=== PATIENT | female | born 1940 | race Caucasian/White ===

== ENCOUNTER 2022-02-20 11:15 | Outpatient (RCR) | payer MEDICARE, SELFPAY | END 2022-04-13 16:21 | disposition home or self-care (01) | PROVIDERS: PCP Orthopaedic Surgery; Visit Provider Orthopaedic Surgery | DX: Z96.641 Presence of right artificial hip joint (principal); Z51.89 Encounter for other specified aftercare | CPT/HCPCS: 97110; 97116; 97140; 97161 ==

== ENCOUNTER 2022-05-12 13:38 | Emergency (ER) | payer MEDICARE, SELFPAY ==
[2022-05-12] VITALS (22 sets, daily range): BP systolic 122–155; BP diastolic 53–112; PULSE 52–76; TEMP 36.4; O2SAT 84–99; BMI 43.3
--- NOTE | 2022-05-12 14:16 | CRLHL7_ITS ---
For Patients: As a result of the Century Cures Act, medical imaging exams and procedure reports are released immediately into your electronic medical record. You may view this report before your referring provider. If you have questions, please contact your health care provider. Indication: Chest pain Technique: Chest 2 views Comparison: None Findings/Impression: Cardiovascular and mediastinum: Heart size and vasculature are normal in caliber and appearance. Mediastinum is within normal limits. Lungs and pleural spaces: No pleural effusion or pneumothorax. Discoid atelectasis left lung base. Bones and soft tissues: No significant findings. Dictated by Bernardo Deluca MD @ 05/12/2022 3:41:47 PM (Electronically Signed)
--- NOTE | 2022-05-12 14:41 | ED_ITS ---
HPI - Chest Pain General Date Seen: 05/12/22 Chief Complaint: Chest Pain Stated Complaint: Chest pain, weakness in arms Time Seen by Provider: 05/12/22 14:05 Source: patient and family Mode of arrival: ambulatory Limitations: no limitations History of Present Illness HPI narrative: Patient is a 81-year-old female proximally 1.5 hours ago noted that she had is bubbly pressure feeling in her chest, this lasted for approximately 1-2 minutes, she was sitting at her dinner table when this occurred, not exercising herself. She said it did radiate to her arms bilaterally, lasted approximately 20 seconds and then resolved. Called her who told her where her blood pressure cuff was, he then came home from where ever he was and brought her to the emergency room. She has a history of atrial fibrillation but no personal history of coronary disease. Remembers approximately 1 year ago she had a similar episode when she was at the [facility] and she was sent to [facility], was seen in the emergency room and then discharge, does remember if she had a stress test or not. No nausea vomiting no diaphoresis no radiation of discomfort other than noted described, she feels back to normal at the present time. She tells me she does not really exert herself due to orthopedic issues with her lower extremities but has never had chest pain shortness of breath when she is moving around. MD complaint: chest pain and chest heaviness Onset (ago): hour(s) Timing of current episode: episodic Prior episodes: Yes Onset: during rest Pain location: substernal Pain radiation: right arm and left arm Severity: moderate Quality: tightness and heaviness Exacerbating factors: nothing Treatment prior to arrival: none Risk Factors Thoracic aortic dissection risk factors: none Related Data On Oral Contraceptives: No Home Medications Medication Instructions Recorded Confirmed hydrochlorothiazide 25 mg tablet mg 05/12/22 losartan 100 mg tablet mg 05/12/22 metoprolol succinate 50 mg mg PO 05/12/22 tablet,extended release 24 hr omeprazole 20 mg capsule,delayed mg 05/12/22 release simvastatin 20 mg tablet mg 05/12/22 warfarin 5 mg tablet mg 05/12/22 Allergies Allergy/AdvReac Type Severity Reaction Status Date / Time No Known Drug Allergies Allergy Verified 05/12/22 13:51 Review of Systems Status of ROS Reports: 10 or more systems reviewed and unremarkable except as noted in History and below PFSH [facility] Social History Smoking Status: Former smoker Do you use any of these nicotine containing products: None How often do you have a drink containing alcohol: 2-4 times a month How many standard drinks containing alcohol do you have on a typical day: 1 or 2 AUDIT-C Alcohol total score: 2 Non-prescribed substance use: denies use Exam Narrative Exam Narrative: Patient is seen in room 3, her BMI is elevated, Patient is speaking normally, no problem with slurring words, oriented x3. Head eyes ears nose and throat exam show equal pupils, no scleral icterus, extraocular muscles are normal, no facial droop, speech is normal, trachea normal and midline. Thyroid normal midline palpable not enlarged. Chest shows symmetrical rise bilaterally, normal auscultation with no wheezes, no increased work of breathing, no overt bruising or lesions seen, no tenderness is noted on auscultation. Heart sounds normal with no S3-S4 no murmurs clicks or gallops. Abdomen shows no obvious masses or hepatosplenomegaly, no organomegaly, bowel sounds are normal in all quadrants. No tenderness is noted also in all quadrants. Upper and lower extremities show normal power, normal range of motion, pulses are normal, sensations normal, fine motor movements are normal, pelvis is stable to rocking. Cervical spine shows normal range of motion, and palpably not tender. Thoracic spine shows normal range of motion, and palpably not tender, lumbar spine shows no tenderness to palpation percussion and is otherwise normal range of motion. Skin shows no rashes, petechiae or eccymosis. Const Vital Signs, click to edit/add: Vital Signs - 24 hr 05/12/22 13:51 05/12/22 14:57 05/12/22 15:00 Temperature 97.6 F Pulse Rate 55 L 52 L Pulse Rate [Pulse Oximeter] 62 Blood Pressure Blood Pressure [Right Upper Arm] 155/78 H Pulse Oximetry 97 98 99 Oxygen Delivery Method Room Air 05/12/22 15:02 05/12/22 15:03 05/12/22 15:30 Temperature Pulse Rate 55 L 55 L 52 L Pulse Rate [Pulse Oximeter] Blood Pressure 122/61 Blood Pressure [Right Upper Arm] Pulse Oximetry 98 99 99 Oxygen Delivery Method 05/12/22 15:32 05/12/22 16:00 05/12/22 16:02 Temperature Pulse Rate 55 L 55 L 56 L Pulse Rate [Pulse Oximeter] Blood Pressure 124/66 127/112 H Blood Pressure [Right Upper Arm] Pulse Oximetry 96 99 99 Oxygen Delivery Method 05/12/22 16:30 05/12/22 16:32 05/12/22 16:33 Temperature Pulse Rate 55 L 52 L 57 L Pulse Rate [Pulse Oximeter] Blood Pressure 129/68 Blood Pressure [Right Upper Arm] Pulse Oximetry 99 97 96 Oxygen Delivery Method 05/12/22 17:00 05/12/22 17:02 05/12/22 17:03 Temperature Pulse Rate 53 L 55 L 57 L Pulse Rate [Pulse Oximeter] Blood Pressure 129/74 Blood Pressure [Right Upper Arm] Pulse Oximetry 96 96 98 Oxygen Delivery Method 05/12/22 18:07 05/12/22 18:11 05/12/22 18:30 Temperature Pulse Rate 76 65 62 Pulse Rate [Pulse Oximeter] Blood Pressure 146/71 H Blood Pressure [Right Upper Arm] Pulse Oximetry 84 L 99 98 Oxygen Delivery Method 05/12/22 18:32 Temperature Pulse Rate 61 Pulse Rate [Pulse Oximeter] Blood Pressure 123/61 Blood Pressure [Right Upper Arm] Pulse Oximetry 96 Oxygen Delivery Method Documenting provider has reviewed patient's vital signs: yes Course Course Hospital Course: She was accepted to transfer by Dr. Bermudez at [facility], with a diagnosis of NSTEMI. She is currently pain-free, Vital Signs Vital signs: Initial Vital Signs Temperature 97.6 F 05/12/22 13:51 Temperature Source Temporal Artery Scan 05/12/22 13:51 Pulse Rate 62 05/12/22 13:51 Blood Pressure 155/78 H 05/12/22 13:51 Blood Pressure Mean 103 05/12/22 13:51 Blood Pressure Position Sitting 05/12/22 13:51 Pulse Oximetry 97 05/12/22 13:51 Oxygen Delivery Method 05/12/22 13:51 Vital Signs Temperature 97.6 F 05/12/22 13:51 Pulse Rate 62 05/12/22 13:51 Blood Pressure 155/78 H 05/12/22 13:51 Pulse Oximetry 97 05/12/22 13:51 Oxygen Delivery Method 05/12/22 13:51 Temperature 97.6 F 05/12/22 13:51 Pulse Rate 61 05/12/22 18:32 Blood Pressure 123/61 05/12/22 18:32 Pulse Oximetry 96 05/12/22 18:32 Oxygen Delivery Method 05/12/22 13:51 MDM - Chest Pain MDM Narrative Medical decision making narrative: During the evaluation of this patient I considered multiple differential di agnosis is. The life-threatening differential diagnosis include coronary disease/[place], pulmonary embolism, pneumothorax, pneumonia, and aortic dissection. Other differential diagnosis included but were not limited to pericarditis, myocarditis, chest wall pain, GERD, esophageal rupture, rib fracture contusion, pleurisy, as well as other etiologies. Medical Records Data Attestation: I reviewed the patient's medical records. Lab Data Attestation: I reviewed the patient's lab results. Labs: Lab Results 05/12/22 05/12/22 05/12/22 Range/Units 10:36 14:35 14:35 WBC 8.05 (4.50-11.00) K/uL RBC 4.56 (4.00-5.20) m/uL Hgb 13.8 (12.0-16.0) gm/dL Hct 41.4 (33.0-51.0) % MCV 91 (80-100) fL MCH 30 (26-34) pg MCHC 33 (32-36) gm/dL RDW Coeff of Donna 13.2 (11.5-15.5) % Plt Count 179 (140-440) K/uL Neut % (Auto) 69.0 (42.0-72.0) % Lymph % (Auto) 22.7 (20-44) % [place] % (Auto) 6.5 (0.0-11.0) % Eos % (Auto) 0.6 (0.0-7.0) % Baso % (Auto) 0.1 (0.0-3.0) % Neut # (Auto) 5.55 (1.7-7.0) K/uL Lymph # (Auto) 1.83 (0.90-2.90) K/uL [place] # (Auto) 0.50 (0.00-0.90) K/UL Eos # (Auto) 0.05 (0.00-0.50) K/uL Baso # (Auto) 0.01 (0.00-0.30) K/uL INR (0.91-1.10) APTT 37 H (23-33) Seconds D-Dimer Quant (PE/DVT) 0.68 H (0.00-0.50) ug/ml Sodium 138 (135-149) mmol/L Potassium 3.3 L (3.6-5.1) mmol/L Chloride 104 (96-114) mmol/L Carbon Dioxide 30 (20-32) mmol/L BUN 20 (7-30) mg/dL Creatinine 0.8 (0.5-1.5) mg/dL Estimated Creat Clear 41.05 Estimated GFR 75 ml/min Glucose 96 (60-115) mg/dL Calcium 9.2 (8.4-10.6) mg/dL Total Bilirubin (0.1-1.5) mg/dL Direct Bilirubin (0.0-0.5) mg/dL AST (12-35) U/L ALT (4-35) U/L Alkaline Phosphatase (40-150) U/L NT-Pro-B Natriuret Pep pg/mL Total Protein (6.0-8.3) g/dL Albumin (3.3-5.0) g/dL Lipase (23-300) U/L SARS-CoV-2 (PCR) (Negative) Influenza Type A (PCR) (Negative) Influenza Type B (PCR) (Negative) RSV (PCR) (Negative) POC Troponin I (0.01-0.04) ng/ml 05/12/22 05/12/22 05/12/22 Range/Units 14:35 14:35 14:35 WBC (4.50-11.00) K/uL RBC (4.00-5.20) m/uL Hgb (12.0-16.0) gm/dL Hct (33.0-51.0) % MCV (80-100) fL MCH (26-34) pg MCHC (32-36) gm/dL RDW Coeff of Donna (11.5-15.5) % Plt Count (140-440) K/uL Neut % (Auto) (42.0-72.0) % Lymph % (Auto) (20-44) % [place] % (Auto) (0.0-11.0) % Eos % (Auto) (0.0-7.0) % Baso % (Auto) (0.0-3.0) % Neut # (Auto) (1.7-7.0) K/uL Lymph # (Auto) (0.90-2.90) K/uL [place] # (Auto) (0.00-0.90) K/UL Eos # (Auto) (0.00-0.50) K/uL Baso # (Auto) (0.00-0.30) K/uL INR (0.91-1.10) APTT (23-33) Seconds D-Dimer Quant (PE/DVT) (0.00-0.50) ug/ml Sodium (135-149) mmol/L Potassium (3.6-5.1) mmol/L Chloride (96-114) mmol/L Carbon Dioxide (20-32) mmol/L BUN (7-30) mg/dL Creatinine (0.5-1.5) mg/dL Estimated Creat Clear Estimated GFR ml/min Glucose (60-115) mg/dL Calcium (8.4-10.6) mg/dL Total Bilirubin 0.9 (0.1-1.5) mg/dL Direct Bilirubin 0.1 (0.0-0.5) mg/dL AST 27 (12-35) U/L ALT 20 (4-35) U/L Alkaline Phosphatase 88 (40-150) U/L NT-Pro-B Natriuret Pep 405 pg/mL Total Protein 6.9 (6.0-8.3) g/dL Albumin 4.2 (3.3-5.0) g/dL Lipase 53 (23-300) U/L SARS-CoV-2 (PCR) Negative SARS-CoV-2 (Negative) Influenza Type A (PCR) Negative PCR FLU A (Negative) Influenza Type B (PCR) Negative PCR FLU B (Negative) RSV (PCR) Negative PCR RSV (Negative) POC Troponin I 0.05 H (0.01-0.04) ng/ml 05/12/22 05/12/22 Range/Units 14:35 17:35 WBC (4.50-11.00) K/uL RBC (4.00-5.20) m/uL Hgb (12.0-16.0) gm/dL Hct (33.0-51.0) % MCV (80-100) fL MCH (26-34) pg MCHC (32-36) gm/dL RDW Coeff of Donna (11.5-15.5) % Plt Count (140-440) K/uL Neut % (Auto) (42.0-72.0) % Lymph % (Auto) (20-44) % [place] % (Auto) (0.0-11.0) % Eos % (Auto) (0.0-7.0) % Baso % (Auto) (0.0-3.0) % Neut # (Auto) (1.7-7.0) K/uL Lymph # (Auto) (0.90-2.90) K/uL [place] # (Auto) (0.00-0.90) K/UL Eos # (Auto) (0.00-0.50) K/uL Baso # (Auto) (0.00-0.30) K/uL INR 1.86 H (0.91-1.10) APTT (23-33) Seconds D-Dimer Quant (PE/DVT) (0.00-0.50) ug/ml Sodium (135-149) mmol/L Potassium (3.6-5.1) mmol/L Chloride (96-114) mmol/L Carbon Dioxide (20-32) mmol/L BUN (7-30) mg/dL Creatinine (0.5-1.5) mg/dL Estimated Creat Clear Estimated GFR ml/min Glucose (60-115) mg/dL Calcium (8.4-10.6) mg/dL Total Bilirubin (0.1-1.5) mg/dL Direct Bilirubin (0.0-0.5) mg/dL AST (12-35) U/L ALT (4-35) U/L Alkaline Phosphatase (40-150) U/L NT-Pro-B Natriuret Pep pg/mL Total Protein (6.0-8.3) g/dL Albumin (3.3-5.0) g/dL Lipase (23-300) U/L SARS-CoV-2 (PCR) (Negative) Influenza Type A (PCR) (Negative) Influenza Type B (PCR) (Negative) RSV (PCR) (Negative) POC Troponin I 0.49 H (0.01-0.04) ng/ml Imaging Data Chest x-ray: Attestation: I have reviewed the pertinent imaging results. My impression: No acute changes Radiologist's impression: Patient: ANGEL LUIS ARIZAPancho Facility:?[facility] Patient ID:?[id number] Site Patient ID:?[id number]. Site :?[id number] Study:?XRay Chest PA & LAT-05/12/2022 2:34:38 PM Ordering Physician:Ramez Briseno Final Report: Indication: Chest pain Technique: Chest 2 views Comparison: None Findings/Impression: Cardiovascular and mediastinum: Heart size and vasculature are normal in caliber and appearance. Mediastinum is within normal limits. Lungs and pleural spaces: No pleural effusion or pneumothorax. Discoid atelectasis left lung base. Bones and soft tissues: No significant findings. Dictated by Bernardo Deluca MD @ 05/12/2022 3:41:47 PM (Electronic Signature) ECG Data Attestation: I personally reviewed and interpreted this ECG as follows: ECG interpretation date: 05/12/22 Interpretation: EKG shows sinus rhythm with a ventricular rate of 63, occasional PVCs, no acute ST wave changes, 2nd EKG done 2 hours after 1st EKG shows no acute changes, Discharge Plan Discharge Clinical Impression: Acute non-ST elevation myocardial infarction (NSTEMI) Patient Disposition: [facility] Condition: Stable Prescriptions: No Action metoprolol succinate 50 mg tablet extended release 24 hr PO Label Comments: TAKE 1 TABLET BY MOUTH ONCE DAILY simvastatin 20 mg tablet Label Comments: TAKE 1 TABLET BY MOUTH ONCE DAILY IN THE EVENING warfarin 5 mg tablet omeprazole 20 mg capsule,delayed release(DR/EC) Label Comments: TAKE 1 CAPSULE BY MOUTH ONCE DAILY BEFORE A MEAL hydrochlorothiazide 25 mg tablet Label Comments: TAKE 1 TABLET BY MOUTH ONCE DAILY losartan 100 mg tablet Label Comments: TAKE 1 TABLET BY MOUTH ONCE DAILY Stand Alone Forms: My[employer] Info Instructions
[2022-05-12 14:55] LABS: Basophils Absolute Auto 0.01 K/uL (0.00-0.30); Basophils Percent Auto 0.1 % (0.0-3.0); Eosinophils Absolute Auto 0.05 K/uL (0.00-0.50); Eosinophils Percent Auto 0.6 % (0.0-7.0); Hematocrit 41.4 % (33.0-51.0); Hemoglobin* 13.8 gm/dL (12.0-16.0); Immature Granulocytes Abs Auto 0.09 K/uL (0.00-0.30); Immature Granulocytes Pct Auto 1.1 %; Lymphocytes Absolute Auto 1.83 K/uL (0.90-2.90); Lymphocytes Percent Auto 22.7 % (20-44); Mean Corpuscular HGB Conc 33 gm/dL (32-36); Mean Corpuscular Hemoglobin 30 pg (26-34); Mean Corpuscular Volume 91 fL (80-100); Monocytes Percent Auto 6.5 % (0.0-11.0); Neutrophils Absolute Auto 5.55 K/uL (1.7-7.0); Platelet Count* 179 K/uL (140-440); RDW Coefficient of Variation % 13.2 % (11.5-15.5); Red Blood Count 4.56 m/uL (4.00-5.20); White Blood Count* 8.05 K/uL (4.50-11.00)
[2022-05-12 14:59] LABS: Slide Review Reflex No
[2022-05-12 15:05] LABS: Troponin, Point-of-Care* 0.05 ng/ml (0.01-0.04)
[2022-05-12 15:11] LABS: Albumin* 4.2 g/dL (3.3-5.0)
[2022-05-12 15:12] LABS: Chloride* 104 mmol/L (96-114); Partial Thromboplastin Time* 37 Seconds (23-33); Potassium* 3.3 mmol/L (3.6-5.1); Sodium* 138 mmol/L (135-149)
[2022-05-12 15:14] LABS: Alkaline Phosphatase* 88 U/L (40-150); Aspartate Amino Transferase* 27 U/L (12-35); Bilirubin Direct* 0.1 mg/dL (0.0-0.5); Bilirubin Total* 0.9 mg/dL (0.1-1.5); D Dimer Quantitative* 0.68 ug/ml (0.00-0.50); Lipase* 53 U/L (23-300); Total Protein* 6.9 g/dL (6.0-8.3)
[2022-05-12 15:15] LABS: Alanine Aminotransferase* 20 U/L (4-35); Carbon Dioxide* 30 mmol/L (20-32); Creatinine* 0.8 mg/dL (0.5-1.5); Est. Creatinine Clearance* 41.05; Estimated Glomerular Filt Rate 75 ml/min
[2022-05-12 15:16] LABS: Blood Urea Nitrogen* 20 mg/dL (7-30); Calcium* 9.2 mg/dL (8.4-10.6); Glucose* 96 mg/dL (60-115)
[2022-05-12 15:32] LABS: NT Pro B Type NatriureticPept* 405 pg/mL
[2022-05-12 16:14] LABS: PCR FLU A Negative PCR FLU A (Negative); PCR FLU B Negative PCR FLU B (Negative); PCR RSV Negative PCR RSV (Negative)
[2022-05-12 16:23] LABS: SARS PCR* Negative SARS-CoV-2 (Negative)
[2022-05-12 17:47] LABS: Troponin, Point-of-Care* 0.49 ng/ml (0.01-0.04)
--- NOTE | 2022-05-12 17:47 | ED.NURSE ---
Trop result relayed to Dr clinton
[2022-05-12] MEDS: ASPIRIN 81 MG TAB.CHEW 324 MG PO (18:03)
[2022-05-12 18:08] LABS: INR 1.86 (0.91-1.10); Prothrombin Time 22.4 Seconds
--- NOTE | 2022-05-12 19:13 | ED.NURSE ---
Report to Evie SANABRIA at [facility]. EMS called for transport.
--- NOTE | 2022-05-12 19:31 | ED.NURSE ---
Patient transfer to [facility] via [facility]. Patient sent with ED transfer packet, face sheet, PCS form, transfer consent, copy of EKG. Patient stable at time of transport.
== END 2022-05-12 19:33 | disposition home or self-care (01) ==
PROVIDERS: Emergency Provider Family Medicine; PCP Family Medicine
DX: I21.4 Non-ST elevation (NSTEMI) myocardial infarction (principal); Z13.0 Encounter for screening for diseases of the blood and blood-forming organs and certain disorders involving the immune mechanism
CPT/HCPCS: 36415; 71046; 80048; 80076; 83690; 83735; 83880; 84484; 85025; 85379; 85610; 85730; 87502; 87634; 87635; 93005; 99285; A9270

== ENCOUNTER 2022-05-12 19:18 | Outpatient (CLI) | payer MEDICARE, SELFPAY | END 2022-05-12 19:19 | disposition home or self-care (01) | LOC: AMB 05-15 06:21 | PROVIDERS: PCP Family Medicine; Visit Provider Family Medicine | DX: R07.89 Other chest pain (principal) | CPT/HCPCS: A0425; A0427 ==

== ENCOUNTER 2024-09-01 11:08 | Emergency (ER) | payer MEDICARE, SELFPAY ==
[2024-09-01] VITALS (8 sets, daily range): BP systolic 110–132; BP diastolic 65–81; PULSE 69–77; RESP 16–40; TEMP 36.3; O2SAT 97–98; BMI 42.6
--- OUTSIDE RECORDS SUMMARY | 2024-09-01 11:11 | XMS_ITS | Clinical Summary ---
Author Organization [facility] Address [address] [place] [address] Care Team Providers Care Gender Studies Professor Name Role Phone JaelmirlandegmMitali Primary Care Provider [phone] Annamarie Mansfield MD Unavailable [phone] Allergies Active Allergy Reactions Criticality Noted Date Comments Flbmdxdj-Ykwzgvjrqtu-Urrxtvcfr Rash 01/21 Amlodipine Rash Low 04/26/2016 Medications cetirizine (ZYRTEC) 10 mg tabletIndications :Allergic rhinitis, cause unspecified Take 1 tablet by mouth once daily. 90 tablet 3 011 Active cholecalciferol (VITAMIN D-3) 2,000 unit capsuleIndication s:Vitamin D deficiency Take 1 capsule by mouth once daily. 90 capsule 3 013 Active Tylenol Extra Strength 500 mg tablet TAKE 2 TABLETS BY MOUTH EVERY 8 HOURS FOR 21 DAYS POST-OP THEN NEEDED 022 Active famotidine (Pepcid) 20 mg tablet Take 1 Tablet (20 mg) by mouth 2 times daily if needed. 0 023 Active fluticasone (50 mcg per actuation) nasal solution (FLONASE)Indicati ons:Chronic nasal congestion Inhale 1 [place] to both nostrils once daily. 16 g 6 024 Active Graduated Compression StockingsIndicati ons:Venous stasis For personal use. Length: thigh Strength: 20-30 mmHg Circumference in cm: For thigh: Ankle 27, Calf 49, Thigh 56, Thigh to Ankle length 51. 1 Packet 024 Active ondansetron (ZOFRAN ODT) 4 mg disintegrating tabletIndications :Benign paroxysmal positional vertigo due to bilateral vestibular disorder Place 1 Tablet (4 mg) on the tongue every 8 hours if needed for Nausea/Vomiting. 30 Tablet Active meclizine (ANTIVERT) 25 mg tabletIndications :Benign paroxysmal positional vertigo due to bilateral vestibular disorder Take 1 Tablet (25 mg) by mouth 3 times daily if needed for Vertigo. 30 Tablet 024 Active ipratropium (ATROVENT NASAL) 21 mcg (0.03 %) nasal sprayIndications: Non-seasonal allergic rhinitis, unspecified trigger Inhale 2 Sprays into affected nostril(s) 3 times daily if needed for Rhinitis. Abingdon dose in each nostril. 30 mL 11 Active triamcinolone (ARISTOCORT; KENALOG) 0.1 % creamIndications: Atopic dermatitis, unspecified type APPLY CREAM TOPICALLY TO AFFECTED AREA(S) TWICE DAILY UP TO FOR 2 WEEKS FOR LEG RASH 45 g 025 Active warfarin 5 mg tabletIndications :PAF (paroxysmal atrial fibrillation) (HC),Anticoagulat ion monitoring, INR range 2-3 TAKE 1 TABLET (5mg) BY MOUTH ONCE DAILY IN THE EVENING OR DIRECTED 91 Tablet 025 Active hydroCHLOROthiazi de 25 mg tabletIndications :Essential hypertension Take 1 Tablet (25 mg) by mouth once daily. 100 Tablet 3 025 Active losartan 100 mg tabletIndications :Essential hypertension Take 1 Tablet (100 mg) by mouth once daily. 100 Tablet 025 Active metoprolol succinate 50 mg sustained-release tabletIndications :Essential hypertension Take 1 Tablet (50 mg) by mouth once daily. 100 Tablet 3 025 Active potassium chloride 20 mEq extended-release tablet (part/cryst)Indic ations:Hypokalemi a Take 1 Tablet (20 mEq) by mouth once daily with a meal. 100 Tablet 3 025 Active rosuvastatin 20 mg tabletIndications :ASHD (arteriosclerotic heart disease) Take 1 Tablet (20 mg) by mouth at bedtime. 100 Tablet 3 025 Active metFORMIN 500 mg Extended-Release tabletIndications :Prediabetes Take 1 Tablet (500 mg) by mouth once daily with evening meal. For a week, then take 2 tablets daily with a meal. 180 Tablet 1 025 Active omeprazole 20 mg Delayed-Release capsuleIndication s:Gastroesophagea l reflux disease with esophagitis without hemorrhage TAKE 1 CAPSULE BY MOUTH ONCE DAILY BEFORE A MEAL 90 Capsule 2 025 Active albuterol HFA 90 mcg/actuation inhalerIndication s:Acute non-recurrent maxillary sinusitis Inhale 1-2 Puffs by mouth every 4 hours if needed for Shortness Of Breath or Wheezing for up to 5 days. 1 Each 025 2024 Active doxycycline monohydrate 100 mg capsuleIndication s:Acute non-recurrent maxillary sinusitis Take 1 Capsule (100 mg) by mouth two times daily for 10 days. 20 Capsule 025 2024 Active omeprazole (PRILOSEC) 20 mg Delayed-Release capsuleIndication s:Gastroesophagea l reflux disease with esophagitis without hemorrhage Take 1 Capsule (20 mg) by mouth once daily before a meal. 100 Capsule 3 024 2024 Discontinued Active Problems Problem Noted Date Diagnosed Date Prediabetes 06/26/2024 Gastroesophageal reflux dise ase with esophagitis without hemorrhage 01/30/2024 Morbid obesity, unspecified obesity type Prediabetes 02/06/2023 Hypokalemia 02/06/2023 NSTEMI (non-ST elevated myocardial infarction) 0 05/12/2022 Body mass index (BMI) 40.0-44.9, adult Anticoagulation monitoring, INR range 2-3 2020 PAF (paroxysmal atrial fibrillation) 02/03/2021 Prediabetes 10/26/2020 Bilateral pseudophakia 10/23/2019 Hyperopia of both eyes with astigmatism and pres byopia 11/12/2018 Skin cancer 06/20/2018 Overview (04/22/2020): 06/20/18 right cheek, nodular BCC: Mohs 07/15/18 [place] 05/10/18 left garcia, SCCIS, used Aldara Squamous cell carcinoma, leg, left 05/13/2018 Osteopenia of multiple sites 04/27/2017 Overview (11/01/2020): DEXA 04/19/17:T-scores: AP -0.2, LFN -1.3, RFN -0.9. FRAX 9.1%. DEXA 10/28/20: T-scores AP: 1.1, LFN -1.1, RFN -1.0. FRAX 14.8. Recommend basic bone health and repeat in 3-5 years. PMB (postmenopausal bleeding) 02/04/2016 ABM (anterior basement membrane) dystrophy 12/19 Atrophic vaginitis 10/11/2015 Microscopic hematuria 10/11/2015 Adenomatous colon polyp 11/19/2013 Overview (01/14/2020): Colonoscopy 11/2013 polyp repeat in 5 years Colonoscopy 12/2019 polyp, repeat in 5 years with propofol Protruded lumbar disc 06/07/2011 JOHN AHI-25 09/06/2009 09/27/2009 Vitamin D deficiency 07/18/2009 Other and unspecified hyperlipidemia 01/08/2006 Osteoarthrosis, unspecified whether generalized or localized, lower leg 01/08/2006 Pure hypercholesterolemia 09/30/2003 Unspecified essential hypertension 09/30/2003 Benign paroxysmal positional vertigo 09/30/2003 Obesity, unspecified 09/30/2003 DYSTROPHY, SENSORY RETINAL-FUNDUS FLAVIMACULATUS 09/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 Followed until 5 years out from surgery (03/2021). SINUSITIS - ACUTE 04/07/2005 04/19/2018 Encounters Date Type Department Care Team Description 08/28/2024 9:50 AM CDT Ancillary Procedure [facility] [address] [facility] [address] [place] [address] 08/28/2024 9:25 AM CDT Office Visit [facility] [address] [place] [address] [place] [address] Didi Moffett PA URI 08/28/2024 Travel 08/13/2024 9:45 AM CDT Orders Only [facility] [address] [place] [address] Lab[facility] 08/13/2024 Anticoagulation (warfarin) [facility] [address] [place] [address] Clinic[facility] Anticoagulation 08/13/2024 Travel 08/04/2024 Telephone [facility] [address] [place] [address] Mitali Zavala DO Anticoagulation (BPA omeprazole/warfairn) 08/01/2024 Refill [facility] [address] [place] [address] Mitali Zavala DO Refill Request (Omeprazole) 07/16/2024 10:00 AM CDT Orders Only [facility] [address] [place] [address] Lab[facility] 07/16/2024 Anticoagulation (warfarin) [facility] [address] [place] [address] Clinic[facility] Anticoagulation 07/16/2024 Travel 06/30/2024 Telephone [facility] [address] [place] [address] Mitali Zavala DO Anticoagulation (New medication ) 06/26/2024 Telephone [facility] [address] [place] [address] Mitali Zavala DO Results 06/25/2024 9:10 AM CDT Office Visit [facility] [address] [place] [address] Mitali Zavala, Medication Management 06/25/2024 Anticoagulation (warfarin) [facility] [address] [place] [address] Clinic[facility] Anticoagulation (PCP visit) 06/25/2024 Travel 06/10/2024 Refill [facility] [address] [place] [address] Mitali Zavala DO Refill Request (Warfarin) 06/06/2024 9:45 AM CDT Orders Only [facility] [address] [place] [address] Lab[facility] 06/06/2024 Anticoagulation (warfarin) [facility] [address] [place] [address] Clinic[facility] Antico[facility] 06/06/2024 Travel from Last 3 Months Immunizations Immunization Administration Dates Next Due COVID-19 VACCINE SPIKEVAX (M ODERNA 50MCG/0.5ML) 12YO+ PFS 01/30/2024,02/02/2023 COVID-19 vaccine (Moderna 100mcg/0.5mL) PF, MDV 06/11/2020,05/14/2020 COVID-19 vaccine (Moderna 50 mcg/0.5mL) 12YO+ BIVALENT PF, MDV 01/23/2022 COVID-19 vaccine (Moderna Kvng crystal 50mcg/0.25mL) PF, MDV 07/22/2021,02/15/2021 DTP 07/20/2008 Influenza A (H1N1), Inactivated 04/07/2009 Influenza A (H1N1), Inactiva mely (Age >=3 Years) 04/07/2009 Influenza, High-dose Inactivated 019,12/22/2015,12/30/2014,12/31 Influenza, IIV3 (Age >=3 years) 01/25/20 13,01/23/2012,02/08/2011,02/04,12/31/2008,02/26/2007,01/08/2006 Influenza, Inactivated AIIV4 (Age 65+ Years) Preserv Free 02/02/2023,01/23/2022,01/06/2021,12/04 Influenza, Inactivated IIV3 (Age 65+ Years) Preserv Free 01/30/2024,01/17/2017 Pneumococcal Poly,23-Valent (Pneumovax) 07/20/2008 Pneumococcal conj 13-Valent (Prevnar 13) 12/06/2017,10/12/2014 RSV, Recombinant ADJ Reconst ituted (Arexvy 120MCG/0.5mL) 02/12/2023 Td (Age >=7 Years) 09/30/2003,10/20/2002, 995 Tdap 04/30/2015 Varicella Vaccine 08/06/2008 Zoster (Shingrix-RZV, recombinant) 03/14/2019, Zoster (Zostavax-ZVL, live) 08/06/2008 Family History Medical History Relation Name Comments Cancer Brother 3 lung Other Brother 3 stargart Good Health Daughter 2 Heart Disease Father multiple MIs Other Father macular degener ation Stroke Mother Genetic Other mother age 51 CVA, HTN, EtOH~father age 55 CA, HTN, EtOH~brother CAD, CA age 48~MGM DM~paternal aunt breast CA dx in her 70's~MS-sister Cancer-breast Paternal Aunt Other Sister 2 MS Heart attack Son 1 Heart attack Son 2 Good Health Son 4 3 sons Relation Name Status Comments Brother 1 Alive Brother 2 Brother 3 Daughter 1 Alive Daughter 2 Father Maternal Grandfather Maternal Grandmother Mother Other Paternal Aunt Paternal Grandfather Paternal Grandmother Sister 1 Sister 2 Son 1 Alive Son 2 Alive Son 3 Alive Son 4 Social History Tobacco Use Types Packs/Day Years Used Date Smoking Tobacco: Former Cigarettes 1 10 0 03/26/1958 - 03/26/1968 Passive Smoke Exposure: Past Smokeless Tobacco: Never Tobacco Cessation:Counseling Given: Not Answered Alcohol Use Standard Drinks/Week Comments Yes 1 (1 standard drink = 0.6 oz pure alcohol) socially - 2 drinks every Praveen night 12/07/2020 PHQ-2 Answer Date Recorded PHQ-2 TOTAL SCORE 0 01/30/2024 Social Connections Answer Date Recorded Do you often feel lonely or isolated from those around you? 0 10/24/2023 Financial Resource Strain Answer Date R ecorded Difficulty of Paying Living Expenses 3 10/24/2023 Difficulty of Paying Living Expenses Not on file 10/24/2023 Food Insecurity Answer Date Recorded Do you worry your food will run out before you are able to buy more? 1 10/24/2023 Transportation Needs Answer Date Record ed Does lack of transportation keep you from medica l appointments? 1 10/24/2023 Does lack of transportation keep you from work, meetings or getting things that you need? 1 10/24/2023 Housing Stability Answer Date Recorded What is your housing situation today? 1 10/24/2023 Utilities Answer Date Recorded Do you have trouble paying f or utilities (for example, heat, electricity, water, phone)? 1 10/24/2023 Comments No Sex and Gender Information Value Date Recorded Sex Assigned at Not on file Legal Sex Female 5:26 AM MOVEMAN Gender Identity Not on file Sexual Orientation Not on file Occupation Industry Job Start Date Job End Date retired Not on file Not on file Not on file Obstetrics History Para Term AB IAB SAB Ectopic Multiple Livin g Live Births 4 4 4 0 0 0 0 0 0 4 Date Outcome GA Total Labor Labor/2nd/3rd Weight Sex Type Anes PTL Edwige A1 A5 Name Clin Term Term Term Term Last Filed Vital Signs Vital Sign Reading Time Taken Comments Blood Pressure 119/82 08/28/2024 9:44 AM CDT MAP 97 Pulse 82 08/28/2024 9:44 AM CDT Temperature 36 C (96.8 F) 08/28/2024 9:44 AM CDT Respiratory Rate 20 08/28/2024 9:44 AM CDT Oxygen Saturation 95% 08/28/2024 9:44 AM CDT Inhaled Oxygen Concentration - - Weight 114.4 kg (252 lb 4.8 oz) 06/25/2024 9:00 AM CDT Height 163 cm (5' 4.17) 06/25/2024 9:00 AM CDT Body Mass Index 43.07 06/25/2024 9:00 AM CDT Plan of Treatment Upcoming Encounters Date Type Department Care Team (Late st Contact Info) Description 09/24/2024 9:45 AM CDT Orders Only [facility] [address] [place] [address] Lab, [facility] Maintenance Due Date Last Done Comments COVID-19 vaccine series (2023- season) 2024 01/30/2024, 02/02/2023, 01/23/2022, Additional history exists Depression screening for age 12+ 01/29/2025 01/30/2024, 01/30/2024, 10/25/2023, Additional history exists Medicare Wellness for age 65+ 01/30/2025 01/30/2024, 02/02/2023, 01/30/2022, Additional history exists Tetanus booster 04/30/2025 04/30/2015, 09/2003, 10/20/2002, Additional history exists BMI (ht and wt on same day) for age 18+ 06/25/2025 06/25/2024, 01/30/2024, 05/08/2023, Additional history exists Tdap Completed 04/30/2015 Pneumococcal series for age 50+ Completed 12/06/2017, 10/12/2014, 07/20/2008 Zoster (shingles) series for age 50+ Completed 03/14/2019, 11/28/2018, 08/06/2008 RSV vaccine for adults or Completed 02/12/2023 Influenza Vaccine Completed 01/30/2024, , 01/23/2022, Additional history exists DEXA/DXA scan for age 65+ Completed 2023, 10/28/2020, 04/19/2017, Additional history exists Hepatitis B series for 19+ Aged Out N o longer eligible based on patient's age to complete this topic Goals Goal Patient Goal Type Associated Problems Recent Progress Patient-Stated? Author Lose weight Weight On track( 019 10:53 AM CDT) Yes Aisha Leslie, RN Note: Target Goal Weight 225. Keep a log of everything you eat and log your daily exercise. Goal is to lose 50 lbs. Start with 5 lbs. Patient did do medifast-- with that program she was eating their food and drinking a lot of water. Not a lot of movement-- arthritis in left hip. She is walking more now that they are fixing the street in front of her house. She thinks that this is helping her feel better. motion is lotion. 5 min walk 6 or more days a week. If raining or hot she will go up and down her stairs. Nutrition -- add in vegetables. Action steps to achieve goal: drink at least 2 bottles of dasani water a day with a goal of 4 bottles. Time line for completion: everyday until Sunday Next Patient Outreach for CCM: Saturday 10/21, weight check and spirometry. Aisha Leslie RN, BSN, CLC.................. 10/16/2018 12:18 PM Patient would like to continue with above plan and come in for weight check on Sunday. Aisha Leslie RN, BSN, CLC.................. 10/21/2018 3:05 PM Patient has not been walking much due to the heat. She is drinking 2-3 bottles of water per day. Goal: set a timer in another room for 1.5 hours to remind you to get up and move throughout the day. This will improve your hip stiffness and pain. As you say, motion is lotion. Goal: 3 bottles of water a day Goal: add more veggies. Aisha Leslie RN, BSN, CLC.................. 10/29/2018 11:02 AM Medical Devices Implanted Type Area Product Support Manager Device Identifier Shelf Expiration Date Model / Serial / Lot Iol Boundary +21 [facility] - [id number] Implanted:Qty: 1 on 01/27/2019 by Guzman Pryor MD at [facility] Right: Eye [employer] 10/27/2022 ZCB00 21.0# / [id number] / Iol Boundary +21 [employer] Zcb00 - [id number] Implanted:Qty: 1 on 02/10/2019 by Guzman Pryor MD at [facility] Left: Eye [employer] 12/17/2022 ZCB00 21.0# / [id number] / Procedures Procedure Name Priority Date/Time Associated Diagnosis Comments XR HIP 1 VIEW W PELVIS RIGHT STAT 08/28/2024 10:09 AM CDT Hip pain, right INR,POCT Routine 08/13/2024 9:37 AM CDT PAF (paroxysmal atrial fibrillation) (HC) Anticoagulation monitoring, INR range 2-3 INR,POCT Routine 07/16/2024 9:47 AM CDT PAF (paroxysmal atrial fibrillation) (HC) Anticoagulation monitoring, INR range 2-3 PROTIME-INR Routine 06/25/2024 9:44 AM CDT PAF (paroxysmal atrial fibrillation) (HC) Anticoagulation monitoring, INR range 2-3 HEMOGLOBIN A1C Routine 06/25/2024 9:37 AM CDT Prediabetes BASIC METABOLIC PANEL Routine 06/25/2024 9:37 AM CDT Unspecified essential hypertension INR,POCT Routine 06/06/2024 9:33 AM CDT PAF (paroxysmal atrial fibrillation) (HC) Anticoagulation monitoring, INR range 2-3 XR DXA BONE DENSITY 1 SITE AXIAL AND 1 SITE PERIPHERAL Routine 02/05/2024 10:30 AM MOVEMAN Osteopenia of multiple sites from Last 3 Months or Most Recently Relevant to Health Maintenance Results * XR HIP 1 VIEW W PELVIS RIGHT (08/28/2024 10:09 AM CDT) Anatomical Region Laterality Modality HIPS, HIPR, Pelvis Digital Radio graphy 08/28/2024 10:2 0 AM CDT Narrative 08/28/2024 10:20 AM CDT For Patients: As a result of the Cures Act, medical imaging exams and procedure reports are released immediately into your electronic medical record. You may view this report before your referring provider. If you have questions, please contact your health care provider. Indication: Hip pain. Technique: Pelvis and right hip 2 views. Comparison: None. 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 No acute fracture or dislocation. Joint spaces: Moderate degenerative disease of the spine. Soft tissues: Unremarkable. Impression: No acute fracture or dislocation. 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 Dictated by Linda Feldman MD @ 08/28/2024 10:20:34 AM (Electronically Signed) Procedure Note Linda Feldman MD - 08/28/2024 For Patients: As a result of the Cures Act, medical imagingexams and procedure reports are released immediately into your electronicmedical record. You may view this report before your referring provider.If you have questions, please contact your health care provider. Indication: Hip pain. Technique: Pelvis and right hip 2 views. Comparison: None. 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 No acute fracture ordislocation. Joint spaces: Moderate degenerative disease of the spine. Soft tissues: Unremarkable. Impression: No acute fracture or dislocation. 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 Dictated by Linda Feldman MD @ 08/28/2024 10:20:34 AM (Electronically Signed) Dasia Rodríguez NP GENERAL IMAGING Final Result * (ABNORMAL) INR - POCT [[id number]] - Standing Order (08/13/2024 9:37 AM CDT) Only the most recent of3 resultswithin the time period is included. INR 2.1(H) ratio [facility] Comment: INRs >2.9 may be falsely elevated in patients receiving either unfractionated Heparin or Low Molecular Weight Heparin. Follow up testing in a hospital laboratory may be helpful if clinically indicated. INR results of > or = 5.0 should be verified using the standard venipuncture procedure. Reference Range 0.9-1.1 Moderate-intensity Warfarin Therapy 2.0-3.0 Higher-intensity Warfarin Therapy 3.0-4.0 PROTHROMBIN TIMEP 25.5(H) 10.5 - 13.1 sec [facility] Comment: Point of care fingerstick Prothrombin Time/INR results may vary from venous Prothrombin Time/INR methodologies. Any results exhibiting inconsistency with the patient's clinical status should be repeated using a venous Prothrombin Time/INR method. Blood BLOOD SPECIMEN / Unknown 08/13/2024 9:37 AM CDT 08/13/2024 9:37 AM CDT us Mitali Zavala DO LABORATORY Final Resul t [facility] [address] [place] [address], [facility] [address] [place] [address] * (ABNORMAL) PROTIME-INR [[id number]] - Standing Order (06/25/2024 9:44 AM CDT) INR 1.9(H) <1.3 06/25/2024 3:06 PM CDT [facility] PROTIME 22.5(H) 10.6 - 12.4 sec 06/25/2024 3:06 PM CDT [facility] Blood BLOOD SPECIMEN / Unknown [facility] / Unknown 06/25/2024 9:44 AM CDT 06/25/2024 9:44 AM CDT Narrative [facility] - 06/25/2024 3:06 PM CDT Therapeutic Range 2.0-3.0 for most anticoagulated patients 2.5-3.5 or 4.0 for high risk patients The INR is only used for patients on stable oral anticoagulant therapy. It makes no significant contribution to the diagnosis or treatment of patients whose Protime is prolonged for other reasons. INR results are increased when heparin levels exceed 1.0 U/mL, which corresponds to an aPTT >125 seconds if the patient is on UFH. Mitali Zavala DO HEMATOLOGY Final Resul t Performing Organization Address [facility] Co de Phone Number [facility]AT[facility] [address] [place] [id number], * (ABNORMAL) HEMOGLOBIN A1C (06/25/2024 9:37 AM CDT) HEMOGLOBIN A1C 5.8(H) <5.7 % of total Hgb [facility] Comment: For someone without known diabetes, a hemoglobin A1c value between 5.7% and 6.4% is consistent with prediabetes and should be confirmed with a follow-up test. For someone with known diabetes, a value <7% indicates that their diabetes is well controlled. A1c targets should be individualized based on duration of diabetes, age, comorbid conditions, and other considerations. This assay result is consistent with an increased risk of diabetes. Currently, no consensus exists regarding use of hemoglobin A1c for diagnosis of diabetes for children. Blood BLOOD SPECIMEN / Unknown 06/25/2024 9:37 AM CDT 06/25/2024 9:37 AM CDT Miatli Zavala DO CHEMISTRY Final Resul t Performing Organization Address [facility] de Phone Number [employer] [facility] [address] [place] [address], [place] [phone] [facility] [address] [place] [address] * BASIC METABOLIC PANEL (06/25/2024 9:37 AM CDT) GLUCOSE 92 65 - 99 mg/dL [facility] Comment: Fasting reference interval UREA NITROGEN (BUN) 18 7 - 25 mg/dL [facility] CREATININE 0.85 0.60 - 0.95 mg/dL [facility] EGFR 69 > OR = 60 mL/min/1. 73m2 [facility] BUN/CREATININE RATIO SEE NOTE: 6 - 22 (calc) [facility] Comment: Not Reported: BUN and Creatinine are within reference range. SODIUM 143 135 - 146 mmol/L [facility] POTASSIUM 4.0 3.5 - 5.3 mmol/L [facility] CHLORIDE 105 98 - 110 mmol/L [facility] CARBON DIOXIDE 29 20 - 32 mmol/L [facility] ELECTROLYTE BALANCE 9 7 - 17 mmol/L (calc) [facility] CALCIUM 9.7 8.6 - 10.4 mg/dL [facility] Blood BLOOD SPECIMEN / Unknown 06/25/2024 9:37 AM CDT 06/25/2024 9:37 AM CDT Mitali Zavala DO CHEMISTRY Final Resul t [employer] [facility] [address] [place] [address], [employer] [address] * XR DXA BONE DENSITY 1 SITE AXIAL AND 1 SITE PERIPHERAL (02/05/2024 10:30 AM MOVEMAN) Anatomical Region Laterality Modality LUMBAR SPINE Computed Radiogr aphy 02/05/2024 10:3 0 AM MOVEMAN Impressions 02/06/2024 1:36 PM MOVEMAN NORMAL. Bone mineral density measurements are within normal limits using T score. Narrative 02/06/2024 1:36 PM MOVEMAN For Patients: As a result of the Century Cures Act, medical imaging exams and procedure reports are released immediately into your electronic medical record. You may view this report before your referring provider. If you have questions, please contact your health care provider. EXAM: XR DXA BONE DENSITY 1 SITE AXIAL AND 1 SITE PERIPHERAL LOCATION: [facility] DATE: 02/05/2024 INDICATION: BMD screening, follow-up. DEMOGRAPHICS: Age- 83 years. Gender- Female. Menopausal status- Postmenopausal. COMPARISON: 10/28/2020 TECHNIQUE: Dual-energy x-ray absorptiometry (DXA) performed with routine technique. Forearm DXA performed since unable to interpret hips. FINDINGS: DXA RESULTS -Lumbar Spine: L1-L2: BMD: 1.151 g/cm2. T-score: -0.1. Z-score: 0.6. L3 and L4 omitted from lumbar spine due to greater than 1.0 T-score difference from adjacent vertebrae. This is likely due to degenerative changes, which may artifactually increase BMD. -LEFT Radius 33%: BMD: 0.817 g/cm2. T-score: -0.7. Z-score: 2.2. WHO T-SCORE CRITERIA -Normal: T score at or above -1 SD -Osteopenia: T score between -1 and -2.5 SD -Osteoporosis: T score at or below -2.5 SD The World Health Organization (WHO) criteria is applicable to perimenopausal females, postmenopausal females, and men aged 50 years or older. INTERVAL CHANGE -There has been a 1.0% decrease in lumbar spine BMD. FRACTURE RISK -The FRAX risk calculator is not applicable due to lack of evaluable hip. Procedure Note Sandra David PA - 02/06/2024 For Patients: As a result of the Cures Act, medical imagingexams and procedure reports are released immediately into your electronicmedical record. You may view this report before your referring provider.If you have questions, please contact your health care provider. EXAM: XR DXA BONE DENSITY 1 SITE AXIAL AND 1 SITE PERIPHERAL LOCATION: [facility] DATE: 02/05/2024 INDICATION: BMD screening, follow-up. DEMOGRAPHICS: Age- 83 years. Gender- Female. Menopausal status-Postmenopausal. COMPARISON: 10/28/2020 TECHNIQUE: Dual-energy x-ray absorptiometry (DXA) performed with routinetechnique. Forearm DXA performed since unable to interpret hips. FINDINGS: DXA RESULTS -Lumbar Spine: L1-L2: BMD: 1.151 g/cm2. T-score: -0.1. Z-score: 0.6. L3and L4 omitted from lumbar spine due to greater than 1.0 T-scoredifference from adjacent vertebrae. This is likely due to degenerativechanges, which may artifactually increase BMD. -LEFT Radius 33%: BMD: 0.817 g/cm2. T-score: -0.7. Z-score: 2.2. WHO T-SCORE CRITERIA -Normal: T score at or above -1 SD -Osteopenia: T score between -1 and -2.5 SD -Osteoporosis: T score at or below -2.5 SD The World Health Organization (WHO) criteria is applicable toperimenopausal females, postmenopausal females, and men aged 50 years orolder. INTERVAL CHANGE -There has been a 1.0% decrease in lumbar spine BMD. FRACTURE RISK -The FRAX risk calculator is not applicable due to lack of evaluablehip. IMPRESSION: NORMAL. Bone mineral density measurements are within normal limits using Tscore. Mitali Zavala DO DEXA Final Resul t from Last 3 Months or Most Recently Relevant to Health Maintenance Insurance MEDICARE PART A HB ONLY BLUE CROSS MEDICARE ADVANTAGE Advance Directives Documents on File Type Date Recorded Patient Beater Dumper Expl anation Healthcare Directive 02/29/2016 10:29 AM Healthcare Directive 03/06/2013 1:08 PM H ealthcare Directive * Full Code (Latest Code Status on File) Date Activated Date Inactivated Comments 05/12/2022 8:46 PM 05/14/2022 3:23 PM Question Answer Comments Code Status Discussion: Reviewed Preferences * Full Code Date Activated Date Inactivated Comments 07/12/2020 1:57 PM 07/13/2020 2:09 AM Question Answer Comments Code Status Discussion: Not Discussed * Full Code Date Activated Date Inactivated Comments 02/10/2019 7:28 AM 02/10/2019 12:18 PM * Full Code Date Activated Date Inactivated Comments 01/27/2019 7:23 AM 01/27/2019 11:38 AM * Full Code Date Activated Date Inactivated Comments 03/30/2016 2:38 PM 03/31/2016 12:18 PM Care Teams Gender Studies Professor Relationship Specialty Start [place] [id number] [place] [address] PCP - General Family Practice 10/08/15 [place] [address] [place] [address] Oncology - Gynecologic 02/29/16
--- OUTSIDE RECORDS SUMMARY | 2024-09-01 11:11 | XMS_ITS | Clinical Summary ---
Author Organization [facility] Address [address] [place] [address] Care Team Providers Care Environmental Science Instructor Name Role Phone Unavailable Primary Care Provider Unavailabl e Source Comments Patient records contain information from all sites at [facility]. For routine questions regarding patient records, call [phone] during business hours, M-F 8:00 AM - 5:00 PM Central Time. Record requests for emergency care only can be directed to [phone] at any time.[facility] Allergies Active Allergy Reactions Criticality Noted Date Comments Amlodipine Rash Low 04/26/2016 Jrazkrrq-Waiucjlctui-Qgyscbina Rash 01/21 Medications nystatin (MYCOSTATIN) 100,000 unit/gram cream APPLY CREAM TOPICALLY TO AFFECTED AREA TWICE DAILY OR INDICATED UNTIL HEALING IS COMPLETE, UP TO 2 WEEKS 3 Active omeprazole (PriLOSEC) [address] capsule Take 20 mg by mouth. 3 Active metoprolol succinate (TOPROL-XL) 50 mg 24 hr tablet Take 50 mg by mouth daily. Active losartan (COZAAR) 100 mg tablet Take 100 mg by mouth daily. Active hydroCHLOROthia zide (HYDRODIURIL) 25 mg tablet Take 25 mg by mouth daily. Active rosuvastatin (CRESTOR) 20 mg tablet Take 20 mg by mouth at bedtime. Active warfarin (COUMADIN) 5 mg tablet Take by mouth 5 mg (5 mg x 1) daily in the evening or as directed 3 Active fluticasone propionate (FLONASE) 50 mcg/actuation nasal spray Administer 1 spray into each nostril daily. Active fluconazole (DIFLUCAN) 150 mg tablet TAKE 1 TABLET BY MOUTH ONCE AND MAY REPEAT 1 TABLET IN 3 DAYS IF NEEDED. 3 Active famotidine (PEPCID) 20 mg tablet Take 20 mg by mouth 2 (two) times a day as needed. 3 Active cholecalciferol (VITAMIN D3) 50 mcg (2,000 Unit) capsule Take 1 capsule by mouth daily. 3 Active cetirizine (ZyrTEC) 10 mg tablet Take 1 tablet by mouth daily. 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 Family History Medical History Relation Name Comments Franciscogardt Brother Relation Name Status Comments Brother Social History Tobacco Use Types Packs/Day Years Used Date Smoking Tobacco: Never Assessed Tobacco Cessation:Counseling Given: Not Answered Nutrition Answer Date Recorded Nutrition: EVOO Fat Source Unknown 10/06 Nutrition: Servings of Fruits/Vegetables per Day Not on file 10/06/2022 Dental Answer Date Recorded Dental: Regular Dentist Unknown 10/07/19 23 Comments Unknown Sex and Gender Information Value Date Recorded Sex Assigned at Not on file Legal Sex Female 12:56 PM CDT Gender Identity Not on file Sexual Orientation Not on file Plan of Treatment Health Maintenance Due Date Last Done Comments COVID-19 Vaccine ( season) 2023 02/02/2023, 01/23/2022, 07/22/2021, Additional history exists Influenza Vaccine (#1) 2023 , 01/23/2022, 01/06/2021, Additional history exists Creatinine Level (Kidney Function Test) 02/03/2024 02/02/2023, 07/13/2022, 05/12/2022, Additional history exists Sodium Level 02/03/2024 02/02/2023, 06/25, 05/12/2022, Additional history exists Potassium Level 02/14/2024 02/13/2023, 01/24, 07/13/2022, Additional history exists Depression Screening (Annual PHQ-2) 03/26/2024 Fall Risk Screen (Annual) 03/26/2024 DTaP,Tdap,and Td Vaccines (3 - Td or Tdap) 04/30/2025 04/30/2015, 07/20/2008, 09/30/2003, Additional history exists Pneumococcal vaccine (50+ years) Completed 12/06/2017, 10/12/2014, 07/20/2008 Zoster Vaccines Completed 03/14/2019, 07/2018, 08/06/2008 RSV vaccine - (32-36 weeks) or 60+ years Completed 02/12/2023 IPV Vaccines Aged Out No longer eligi ble based on patient's age to complete this topic Insurance [facility] [place] [address]
--- NOTE | 2024-09-01 11:33 | ED.GENADULT ---
HPI - General Adult General Chief complaint: Arrhythmia/Palpitations Stated complaint: Afib Time Seen by Provider: 09/01/24 11:23 History of Present Illness HPI narrative: patient woke up today feeling worse SOB and cough. has been seen at for cough before. hx of A fib. Ox 98% on room air. 84-year-old woman presenting to the emergency department concerned shortness of breath and cough. Seems to be describing some jags of coughing. Does seem to begin with a throat tickle. Unknown allergies. Symptoms began about 3 weeks ago. Was seen in urgent care and given albuterol inhaler and has been taking Robitussin. Another unspecified medication from urgent care. Does have a history of bronchitis. Did not receive prednisone least at this time. No imaging was done on initial evaluation. Does not have a history of reactive airway she says. No chest pain. Unclear if is coughing more when lying down; seems to happen any time. Does have a history of atrial fibrillation and is anticoagulated with Coumadin. Does admit that if breathes in too quickly would cough Related Data Home Medications ?Medication ?Instructions ?Recorded ?Confirmed hydrochlorothiazide 25 mg tablet mg 05/12/22 losartan 100 mg tablet mg PO 05/12/22 metoprolol succinate 50 mg mg PO 05/12/22 tablet,extended release 24 hr omeprazole 20 mg capsule,delayed mg 05/12/22 release simvastatin 20 mg tablet mg PO 05/12/22 warfarin 5 mg tablet mg PO 05/12/22 Previous Rx's ?Medication ?Instructions ?Recorded benzonatate 100 mg capsule 100 - 200 mg (1 - 2 x 100 mg) PO 09/01/24 TID PRN cough #30 caps prednisone 20 mg tablet 40 mg (2 x 20 mg) PO DAILY 5 days 09/01/24 #10 tabs Allergies Allergy/AdvReac Type Severity Reaction Status Date / Time No Known Drug Allergies Allergy Verified 09/01/24 11:28 Review of Systems Status of ROS: Reports: 6 or more systems reviewed and unremarkable except as noted in History and [facility] Social History Smoking Status: Former smoker Do you use any of these nicotine containing products: None How often do you have a drink containing alcohol: 2-4 times a month How many standard drinks containing alcohol do you have on a typical day: 1 or 2 AUDIT-C Alcohol total score: 2 Non-prescribed substance use: denies use Exam Narrative: Exam Narrative: Pleasant. Of good energy. Intermittent brief cough. Nonproductive. No stridor. Oropharynx is unremarkable. Does sound congested in the nasopharynx without facial swelling or erythema. Lungs with some trace clearing crepitus in the bases left greater than right I think. Heart in irregularly irregular rhythm. Lower extremities with some like compression stockings in place. Trace symmetrical pitting edema. Const: Vital Signs, click to edit/add: Vital Signs - 24 hr 09/01/24 11:21 09/01/24 11:22 09/01/24 11:25 Temperature 97.3 F L Pulse Rate 75 77 Pulse Rate [Pulse Oximeter] 72 Respiratory Rate 21 40 H Blood Pressure 110/65 Blood Pressure [Le ft Forearm] 110/65 Pulse Oximetry 98 98 98 Oxygen Delivery Me thod Room Air 09/01/24 11:30 09/01/24 11:46 09/01/24 12:01 Temperature Pulse Rate 69 73 Pulse Rate [Pulse Oximeter] Respiratory Rate 17 16 Blood Pressure 116/75 110/81 Blood Pressure [Le ft Forearm] Pulse Oximetry 97 98 Oxygen Delivery Me thod 09/01/24 12:17 09/01/24 12:30 Temperature Pulse Rate 75 75 Pulse Rate [Pulse Oximeter] Respiratory Rate Blood Pressure 132/78 Blood Pressure [Le ft Forearm] Pulse Oximetry 98 97 Oxygen Delivery Me thod Documenting provider has reviewed patient's vital signs: yes Course Vital Signs Vital signs: Initial Vital Signs Pulse Rate 75 09/01/24 11:21 Blood Pressure 110/65 09/01/24 11:21 Blood Pressure Mean 80 09/01/24 11:21 Pulse Oximetry 98 09/01/24 11:21 Vital Signs Pulse Rate 75 09/01/24 11:21 Blood Pressure 110/65 09/01/24 11:21 Pulse Oximetry 98 09/01/24 11:21 Temperature 97.3 F L 09/01/24 11:25 Pulse Rate 75 09/01/24 12:30 Respiratory Rate 16 09/01/24 11:46 Blood Pressure 132/78 09/01/24 12:17 Pulse Oximetry 97 09/01/24 12:30 Oxygen Delivery Method Room Air 09/01/24 11:25 Medical Decision Making MDM Narrative Medical decision making narrative: Seems to have URI of some sort. Would look for pneumonia. Consider decongestant though might aggravate atrial fibrillation though denies ever having been in [facility]. Might benefit from steroids for some residual inflammation or something like Tessalon Perles if this trigger to cough is coming from her throat No history of heart failure nor does she seem to be with evidence of this on physical exam. Probably experiencing some laryngospasm contributing to cough. EKG independently reviewed by me does show atrial fibrillation at a rate of 83 For COVID influenza and RSV screening is negative. Has not needed intervention here in the emergency department. Demonstrating stability. Chest x-ray independently reviewed by me without infiltrate or pneumothorax or effusion. Seems to have relatively did normal cardiac silhouette; maybe a little full. Indication: Cough and shortness of breath Technique: PA and lateral views of the chest. Comparison: 05/12/2022. Findings: Low lung volumes. Mildly enlarged cardiomediastinal silhouette. No focal consolidation, pleural effusions, or visualized pneumothorax. Moderate degenerative changes of the visualized spine. Impression: No acute cardiopulmonary disease. Dictated by Sanchez Elizabeth MD @ 09/01/2024 12:00:54 PM See patient discharge plan for further discussion Stay well-hydrated. Consider sleeping under the mist of a cool mist humidifier. Menthol vapors might be helpful. Sucking on ice chips might be helpful. Anesthetic throat sprays or lozenges like Chloraseptic or Sucrets might be helpful. Prescribing course of prednisone as an anti-inflammatory and Tessalon Perles for cough. You might consider a decongestant like pseudoephedrine. This might dry up postnasal drip resulting in less throat tickle and therefore less cough. I personally like the 12 hour formulation but you might try the shorter acting ones 1st. Need to show a courtesy car driver's license or other ID to get this. Yes. I think it would be a good idea to follow-up with your primary care provider and/or Cardiology to discuss your exercise intolerance/fatigue. Medical Records Medical records reviewed: Yes I reviewed the patient's medical records Lab Data Lab results reviewed: Yes I reviewed the patient's lab results Labs: Lab Results 09/01/24 Range/Units 11:34 SARS-CoV-2 (PCR) Negative SARS-CoV-2 (Negative) Influenza Type A (PCR) Negative PCR FLU A (Negative) Influenza Type B (PCR) Negative PCR FLU B (Negative) RSV (PCR) Negative PCR RSV (Negative) Discharge Plan Discharge Clinical Impression: Cough, URI (upper respiratory infection) Patient Disposition: Home w/ Parent or Adult Condition: Stable Additional Instructions: Stay well-hydrated. Consider sleeping under the mist of a cool mist humidifier. Menthol vapors might be helpful. Sucking on ice chips might be helpful. Anesthetic throat sprays or lozenges like Chloraseptic or Sucrets might be helpful. Prescribing course of prednisone as an anti-inflammatory and Tessalon Perles for cough. You might consider a decongestant like pseudoephedrine. This might dry up postnasal drip resulting in less throat tickle and therefore less cough. I personally like the 12 hour formulation but you might try the shorter acting ones 1st. Need to show a courtesy car driver's license or other ID to get this. Yes. I think it would be a good idea to follow-up with your primary care provider and/or Cardiology to discuss your exercise intolerance/fatigue. Prescriptions: New prednisone 20 mg tablet 40 mg PO DAILY 5 Days Qty: 10 0RF benzonatate 100 mg capsule 100 - 200 mg PO TID PRN (Reason: cough) Qty: 30 1RF No Action metoprolol succinate 50 mg tablet extended release 24 hr PO Patient Comments: TAKE 1 TABLET BY MOUTH ONCE DAILY simvastatin 20 mg tablet PO Patient Comments: TAKE 1 TABLET BY MOUTH ONCE DAILY IN THE EVENING warfarin 5 mg tablet PO omeprazole 20 mg capsule,delayed release(DR/EC) Patient Comments: TAKE 1 CAPSULE BY MOUTH ONCE DAILY BEFORE A MEAL hydrochlorothiazide 25 mg tablet Patient Comments: TAKE 1 TABLET BY MOUTH ONCE DAILY losartan 100 mg tablet PO Patient Comments: TAKE 1 TABLET BY MOUTH ONCE DAILY Follow Up/Referrals: Mitali Zavala DO [Primary Care Provider, Family Practice] Stand Alone Forms: [employer] Info Instructions
--- NOTE | 2024-09-01 11:34 | CRLHL7_ITS ---
For Patients: As a result of the Century Cures Act, medical imaging exams and procedure reports are released immediately into your electronic medical record. You may view this report before your referring provider. If you have questions, please contact your health care provider. Indication: Cough and shortness of breath Technique: PA and lateral views of the chest. Comparison: 05/12/2022. Findings: Low lung volumes. Mildly enlarged cardiomediastinal silhouette. No focal consolidation, pleural effusions, or visualized pneumothorax. Moderate degenerative changes of the visualized spine. Impression: No acute cardiopulmonary disease. Dictated by Sanchez Elizabeth MD @ 09/01/2024 12:00:54 PM (Electronically Signed)
[2024-09-01 12:37] LABS: PCR FLU A Negative PCR FLU A (Negative); PCR FLU B Negative PCR FLU B (Negative); PCR RSV Negative PCR RSV (Negative); SARS PCR* Negative SARS-CoV-2 (Negative)
== END 2024-09-01 13:27 | disposition home or self-care (01) ==
PROVIDERS: Emergency Provider Family Medicine; PCP Family Medicine
DX: J06.9 Acute upper respiratory infection, unspecified (principal); R05.9 Cough, unspecified
CPT/HCPCS: 71046; 87631; 93005; 99284